=== PATIENT | male | born 1965 | race Caucasian/White ===

== ENCOUNTER 2022-02-16 10:58 | Emergency (ER) | payer BC, OTHER ==
[2022-02-16 11:23] VITALS: BP 137/72; PULSE 61; RESP 18; TEMP 98.6; BMI 25.3
== END 2022-02-16 11:43 | disposition home or self-care (01) ==
LOC: FER 10:58
DX: H11.32 Conjunctival hemorrhage, left eye (principal)
CPT/HCPCS: 99281-25

== ENCOUNTER 2023-06-13 10:49 | Emergency (ER) | payer BC, OTHER ==
[2023-06-13 11:07] VITALS: BP 117/71; PULSE 66; RESP 20; TEMP 98.4; BMI 25.8
[2023-06-13 12:12] LABS: HEMATOCRIT 41.7 % (35.4-49); HEMOGLOBIN 13.9 G/dL (11.7-16.9); MCH 27.8 pg (25.7-33.7); MCHC 33.4 g/dl (32.0-35.9); MEAN CELL VOLUME 83.3 fl (80-96); MEAN PLT VOLUME 10.3 fl (7.5-11.1); PLATELET COUNT 159.6 10^3/uL (134-434); RBC 5.01 10^6/uL (4.00-5.60); RDW 13.9 % (11.9-15.9); WHITE BLOOD COUNT 5.1 10^3/uL (4.0-10.8)
[2023-06-13 12:21] LABS: PLATELET ESTIMATE ADEQUATE
[2023-06-13 13:44] LABS: ALBUMIN 4.2 g/dl (3.4-5.0); BILIRUBIN,TOTAL 0.6 mg/dl (0.2-1); POTASSIUM 3.9 mmol/L (3.5-5.1)
== END 2023-06-13 14:16 | disposition home or self-care (01) ==
LOC: FER 10:49
DX: R10.84 Generalized abdominal pain (principal); R11.0 Nausea; R19.7 Diarrhea, unspecified; R63.0 Anorexia
CPT/HCPCS: 36415; 74177-TC; 80053; 83690; 84484; 85027; 93005; 99285-25; Q9967